=== PATIENT | male | born 1975 | race Caucasian/White ===

== ENCOUNTER 2019-05-18 00:10 | Emergency (ER) | payer BC ==
--- NOTE | 2019-05-18 00:32 | EDM.PDOC ---
ED HPI GENERAL MEDICAL PROBLEM - General Chief Complaint: General Stated Complaint: bleeding lip Time Seen by Provider: 05/18/19 00:25 Source of Information: Reports: Patient, Old Records ([facility] EMR. No paper hospital chart available.) History Limitations: Reports: No Limitations - History of Present Illness INITIAL COMMENTS - FREE TEXT/NARRATIVE: The patient was brought to the emergency room via private automobile by his for evaluation of refractory bleeding from his upper lip, which started at about 23:45 hours this evening. Note that the patient accidentally bit his upper lip at that time with no history of other injury. He does have a history of hepatic cirrhosis which is currently worked up by his regular provider. He apparently had a small hemangioma in the area bleeding prior to biting this area. No recent history of abdominal pain, heartburn, nausea, diarrhea, melena, gross hematochezia, or any food intolerance, including fatty foods, etc.. The patient also denies any recent fever, cough, wheezing, dyspnea, etc.. No history of other injury, significant bleeding, etc. Onset: Sudden Onset Date: 05/17/19 Onset Time: 23:45 Duration: Constant Location: Reports: Other (Upper left). Denies: Head, Face, Neck, Chest, Abdomen , Back, Upper Extremity, Left, Upper Extremity, Right, Radiates to Quality: Reports: Ache, Sharp Severity: Mild Improves with: Reports: None Worsens with: Reports: None Context: Reports: Other (As above). 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 Cardiovascular History: Reports: High Cholesterol, Hypertension, Other (See Below) Other Cardiovascular History: Probable hyperlipidemia with fatty liver. Gastrointestinal History: Reports: Hepatitis, Jaundice, Other (See Below) Other Gastrointestinal History: Fatty liver with recurrent jaundice and likely alcoholic hepatic cirrhosis with portal hypertension and splenomegaly. Endocrine/Metabolic History: Reports: Obesity/BMI 30+ Social & Family History - Tobacco Use Smoking Status *Q: Current Every Day Smoker Tobacco Use Within Last Twelve Months: Snuff/Dip Years of Tobacco use: 28 Packs/Tins Daily: 1 Packs/Tins Daily Comment: Started using chewing tobacco with previous maximum use of 2 cans per day. Used Tobacco, but Quit: No Smoking Cessation Information Provided To Patient: Yes Second Hand Smoke Exposure: Yes Source of Second Hand Smoke Exposure: smokes Second Hand Smoke Education Provided: Yes - Living Situation & Occupation Living situation: Reports: with Family ED ROS GENERAL - Review of Systems Review Of Systems: ROS reveals no pertinent complaints other than HPI. ED EXAM, GENERAL - Physical Exam Exam: See Below Exam Limited By: No Limitations General Appearance: Alert, WD/WN, No Apparent Distress Eye Exam: Bilateral Eye: EOMI, Normal Inspection (No nystagmus. Patient wearing glasses.), PERRL, Other (Mild bilateral scleral icterus) Ears: Normal External Exam, Normal Canal, Hearing Grossly Normal, Normal TMs Nose: Normal Inspection, Normal Mucosa, No Blood Throat/Mouth: Normal Teeth, Normal Gums, Normal Oropharynx, Normal Voice, No Airway Compromise. No: Normal Lips (Small right upper hemangioma with pinpoint bleeding site but no significant laceration, etc.), Dysphagia, Inflammation, Perioral Cyanosis Head: Atraumatic, Normocephalic. No: Facial Swelling, Facial Tenderness, Sinus Tenderness Neck: Normal Inspection, Supple, Non-Tender, Full Range of Motion. No: Lymphadenopathy (L), Lymphadenopathy (R), Thyromegaly Respiratory/Chest: No Respiratory Distress, Lungs Clear, Normal Breath Sounds, No Accessory Muscle Use, Chest Non-Tender. No: Pleural Rub, Retractions Cardiovascular: Normal Peripheral Pulses, Regular Rate, Rhythm, No Edema, No Gallop, No JVD, No Murmur, No Rub. No: Gallop/S3, Gallop/S4, Friction Rub Peripheral Pulses: 2+: Radial (L), Radial (R) GI/Abdominal: Normal Bowel Sounds, Soft, Non-Tender, No Distention, No Abnormal Bruit, No Mass, Hepatomegaly, Splenomegaly, Other (Obese). No: Guarding (Male) Exam: Deferred Rectal (Males) Exam: Deferred Back Exam: Normal Inspection, Full Range of Motion. No: CVA Tenderness (L), CVA Tenderness (R), Muscle Spasm Extremities: Normal Inspection, Normal Range of Motion, Non-Tender, No Pedal Edema, Normal Capillary Refill. No: Blair's Sign Neurological: Alert, Oriented, CN II-XII Intact, Normal Cognition, Normal Gait, No Motor/Sensory Deficits Psychiatric: Normal Affect, Normal Mood Skin Exam: No Rash, Jaundice (Mild), Wound/Incision (As above). No: Diaphoretic , Lymphangitis, Petechiae Lymphatic: No Adenopathy ED GENERAL MEDICAL PROCEDURES - Laceration/Wound Repair Upper Other Lac/wound length in cm: 0.2 (Mid upper lip) Appearance: Superficial, Clean, Other (Pinpoint) Distal NVT: Neuro & Vascular Intact, No Tendon Injury Anesthetic Type: Local Local Anesthesia - Lidocaine (Xylocaine): 1% Plain Local Anesthetic Volume: 3cc Skin Prep: Providone-Iodine (Betadine) Saline irrigation (cc's): 0 Exploration/Debridement/Repair: Wound Explored, In a Bloodless Field, Explored to Base Closed with: Sutures Suture Size: 4-0 # of Sutures: 2 Suture Type: Interrupted, Simple, Other (Vicryl) Course - Vital Signs Last Recorded V/S: Last Vital Signs Temp 37.0 C 05/18/19 00:10 Pulse 94 05/18/19 00:10 Resp 16 05/18/19 00:10 BP 150/89 H 05/18/19 00:10 Pulse Ox 100 05/18/19 00:10 Vital Signs - 24 hr 05/18/19 00:10 Temperature [ 37.0 C Temporal] Pulse, 94 Peripheral [ Pulse Oximetry] Respiratory 16 Rate Blood Pressure 150/89 H [Right Upper Arm] O2 Sat by Pulse 100 Oximetry - Orders/Labs/Meds Orders: Active Orders 24 hr Category Date Time Status Obtain Past Medical Record [OM.PC] Routine Oth 05/18/19 00:32 Active Labs: None Meds: Medications Discontinued Medications Generic Name Dose Route Start Last Admin Trade Name Stanford PRN Reason Stop Dose Admin Lidocaine HCl 5 ml 05/18/19 00:32 05/18/19 00:37 Xylocaine-Mpf 1% INJECT 05/18/19 00:33 5 ml ONETIME ONE Administration - Radiology Interpretation Free Text/Narrative:: None Departure - Departure Time of Disposition: 01:05 Disposition: Home, Self-Care 01 Condition: Good Clinical Impression: Laceration, Tobacco abuse counseling, Hepatic cirrhosis Hypertension Qualifiers: Hypertension type: essential hypertension Qualified Code(s): I10 - Essential ( primary) hypertension - Discharge Information *PRESCRIPTION DRUG MONITORING PROGRAM REVIEWED*: Not Applicable *COPY OF PRESCRIPTION DRUG MONITORING REPORT IN PATIENT CAMMY: Not Applicable Instructions: Laceration Care, Adult, [id number] Referrals: Saranya Ordaz PA-C [Primary Care Provider] - Forms: ED Department Discharge Additional Instructions: 1. Follow-up with your regular provider MANDEEP for further evaluation including recommended CBC, comprehensive metabolic panel, INR, PTT, and further evaluation of your recent recurrent hepatitis. 2. Continue to avoid all alcohol products, Tylenol, aspirin, Aleve, ibuprofen, and other NSAIDs as discussed 3. Clean upper lip/suture site with Listerine after each meal and as needed. 4. Immediately after this visit verify that your cellular telephone's voicemail has been activated and is empty. Also verify that your home telephone 's answering machine is operating properly and has space to receive messages. Note that it is sometimes necessary for us to be able to contact you at a later date to discuss your medical care. 5. Please remember that we are ALWAYS here for you and want to answer any questions you may have. Feel free to call the hospital any time and we call you back MANDEEP. 6. Continue to observe your blood pressure closely through your regular provider. 7. Stop all tobacco use MANDEEP as directed/per provided information and consider contacting Quit LIne, etc.. - Problem List & Annotations (1) Laceration SNOMED Code(s): 967744094 Code(s): FFJ6563 - Status: Acute Priority: High Current Visit: Yes Onset Date: 05/17/19 Annotation/Comment:: Excellent results with laceration repair as above. Wound care discussed. Last DTaP on 04/03/19, which was confirmed by the ER nurse thru [facility]. 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 (2) Hepatic cirrhosis SNOMED Code(s): 56235786 Code(s): K74.60 - UNSPECIFIED CIRRHOSIS OF LIVER Status: Chronic Priority : High Current Visit: Yes Annotation/Comment:: Patient refused recommended blood work today, however he was advised to follow-up with his regular provider MANDEEP. Note recent CT scan of the abdomen on 04/16/19. Current hepatic cirrhosis and pulmonary hypertension likely previous alcohol abuse, although he was not willing to discuss this at this time. He does state that he has been avoiding alcohol recently. His regular provider has apparently referred him to GI for further evaluation, although has not made this appointment to this point. They were counseled concerning risks of bleeding, esophageal varices, etc. by me during this ER evaluation. Qualifiers: Hepatic cirrhosis type: alcoholic cirrhosis Ascites presence: unspecified Qualified Code(s): K70.30 - Alcoholic cirrhosis of liver without ascites (3) Hypertension SNOMED Code(s): 59422034 Code(s): I10 - ESSENTIAL (PRIMARY) HYPERTENSION Status: Chronic Priority : Medium Current Visit: Yes Annotation/Comment:: He apparently had his lisinopril increased on 04/19/19 by his regular provider. Blood pressure somewhat elevated today. Close follow-up by his regular provider as per discharge instructions. Qualifiers: Hypertension type: essential hypertension Qualified Code(s): I10 - Essential (primary) hypertension (4) Tobacco abuse counseling SNOMED Code(s): 187435093, 030820510, [id number] Code(s): Z71.6 - TOBACCO ABUSE COUNSELING Status: Chronic Priority: Medium Current Visit: Yes Annotation/Comment:: The patient and his were counseled on the use of Nicorette gum with tobacco cessation strongly encouraged information provided at discharge. - Problem List Review Problem List Initiated/Reviewed/Updated: Yes - My Orders Last 24 Hours: My Active Orders 05/18/19 00:32 Obtain Past Medical Record [OM.PC] Routine - Assessment/Plan Last 24 Hours: My Active Orders 05/18/19 00:32 Obtain Past Medical Record [OM.PC] Routine Assessment:: As above Plan: As above. Extensive precautions were given to the patient and his , who are in agreement with the treatment plan. See Patient Instructions for further treatment and plan.
== END 2019-05-18 01:00 | disposition home or self-care (01) ==
LOC: LL.ED 00:10
DX: S01.511A Laceration without foreign body of lip, initial encounter (principal); I10 Essential (primary) hypertension; K74.60 Unspecified cirrhosis of liver; Z71.6 Tobacco abuse counseling; E66.9 Obesity, unspecified; F17.210 Nicotine dependence, cigarettes, uncomplicated; Z79.899 Other long term (current) drug therapy; X58.XXXA Exposure to other specified factors, initial encounter
CPT/HCPCS: 12011; 99282; J2001